=== PATIENT | female | born 1990 | race Caucasian/White ===

== ENCOUNTER 2022-03-07 09:15 | Emergency (ER) | payer OTHER ==
[2022-03-07 09:45] VITALS: BP 110/80
--- NOTE | 2022-03-07 12:12 | XRAY Report ---
PROCEDURE: Chest 1 View X-Ray INDICATIONS: cough/fever TECHNIQUE: One view of the chest was acquired. COMPARISON: None. FINDINGS: Surgical changes and devices: None. Lungs and pleura: No pleural effusions or pneumothorax. Lungs are clear. Mediastinum: Mediastinal contours appear normal. Heart size is normal. Bones and chest wall: No suspicious bony lesions. Overlying soft tissues appear unremarkable. IMPRESSION: Portable chest within normal limits for age. No focal infiltrates are seen. Reviewed by: Jairo Dos Santos MD on 03/07/2022 11:11 AM [facility] Approved by: Jairo Dos Santos MD on 03/07/2022 11:11 AM [facility] Station ID: [id number]
--- NOTE | 2022-03-07 12:36 | ED Physician Documentation ---
PD HPI URI - Stated complaint Stated Complaint: COUGH, CHILL, SWEATS, DIZZY - Chief complaint Chief Complaint: Resp - History obtained from History obtained from: Patient - Additional information Additional information: Patient is a 31-year-old female presenting for evaluation of fever, nonproductive cough, sore throat and body aches since Tuesday. Her daughter is also here with similar symptoms. She has been using teet-sgf-timatum medications including antipyretics with some improvement. She has had no vomiting or diarrhea. She denies abdominal pain, chest pain or labored breathing.She reports a history of pneumonia which concerned her given her fevers. Review of Systems Constitutional: reports: Fever Nose: reports: Congestion Throat: reports: Sore throat Cardiac: denies: Chest pain / pressure Respiratory: reports: Cough. denies: Dyspnea GI: denies: Abdominal Pain, Vomiting : denies: Dysuria Musculoskeletal: denies: Back pain Neurologic: denies: Headache PD PAST MEDICAL HISTORY - Past Medical History Past Medical History: No - Past Surgical History Ortho: ACL reconstruction - Present Medications Home Medications: Ambulatory Orders Medication Instructions Recorded Confirmed EPINEPHrine [Epinephrine] 0.3 mg IJ ONCE PRN 03/07/22 03/07/22 Fluoxetine HCl [Prozac] 40 mg PO DAILY 03/07/22 03/07/22 - Allergies Allergies/Adverse Reactions: Allergies Allergy/AdvReac Type Severity Reaction Status Date / Time artichoke Allergy Anaphylaxis Verified 03/07/22 09:45 pecan nut Allergy Anaphylaxis Verified 03/07/22 09:45 - Social History Does the pt smoke?: No Smoking Status: Never smoker Does the pt drink ETOH?: Yes ETOH Use: Wine Does the pt have substance abuse?: No - Immunizations Immunizations are current?: Yes - POLST Patient has POLST: No PD ED PE NORMAL - General General: Alert and oriented X 3, No acute distress, Well developed/nourished - HEENT HEENT: Atraumatic, Ears normal, Moist mucous membranes, Pharynx benign - Neck Neck: Supple, no meningeal sign - Cardiac Cardiac: RRR, Strong equal pulses - Respiratory Respiratory: No respiratory distress, Clear bilaterally - Abdomen Abdomen: Soft, Non tender - Derm Derm: Warm and dry - Extremities Extremities: No edema - Neuro Neuro: Normal speech Results - Vitals Vitals: Vital Signs - 24 hr 03/07/22 09:41 Temperature 36.8 C Heart Rate 99 Respiratory 18 Rate Blood Pressure 110/80 O2 Saturation 95 Oxygen O2 Source Room air - Labs Labs: Laboratory Tests 03/07/22 09:49 Nasal Adenovirus (PCR) NOT DETECTED Nasal B. parapertussis DNA (PCR) NOT DETECTED Nasal Coronavir 229E PCR NOT DETECTED Nasal Coronavir HKU1 PCR NOT DETECTED Nasal Coronavir NL63 PCR NOT DETECTED Nasal Coronavir OC43 PCR NOT DETECTED Nasal Enterovir/Rhinovir PCR NOT DETECTED Nasal Influenza A H3 PCR DETECTED A Nasal Influenza B PCR NOT DETECTED Nasal Parainfluen 1 PCR NOT DETECTED Nasal Parainfluen 2 PCR NOT DETECTED Nasal Parainfluen 3 PCR NOT DETECTED Nasal Parainfluen 4 PCR NOT DETECTED Nasal RSV (PCR) NOT DETECTED Nasal B.pertussis DNA PCR NOT DETECTED Nasal C.pneumoniae (PCR) NOT DETECTED [place] Human Metapneumo PCR NOT DETECTED Nasal M.pneumoniae (PCR) NOT DETECTED Nasal SARS-CoV-2 (PCR) NOT DETECTED PD MEDICAL DECISION MAKING - ED course Complexity details: re-evaluated patient ED course: Patient with URI symptoms for 3 days. Clinically she is well-appearing with no signs of labored breathing does not appear toxic. Oxygenation is normal. Her chest x-ray is clear. A respiratory panel is pending. It discussed that I suspect her symptoms are likely due to a flulike illness. Patient declined need for Tamiflu. Patient counseled on concerning symptoms to return for and was advised to continue with supportive care. Departure - Departure Disposition: 01 Home, Self Care Clinical Impression: Viral upper respiratory illness Condition: Stable Instructions: ED Viral Syndrome Comments: Your chest x-ray is clear With no evidence of pneumonia. Your respiratory panel is pending. Please continue with acetaminophen or ibuprofen as needed for fevers and body aches, hydration and rest. You have a Covid test pending. You need to self quarantine until the result is done and negative. Do not leave your house. Do not get near anybody. The results should be done in 48 to 72 hours. We will call with a positive result, the fastest way to get a negative result for confirmation though is to go to the hospital website at [email or web address], click on the my [facility] tab and sign up for the patient portal. If any friends or family get sick and would like to have a Covid test done, but do not have signs or symptoms that would necessitate being hospitalized, there are multiple local options for Covid testing. [facility] keeps an updated list of testing and vaccination options at: [email or web address]. Discharge Date/Time: 03/07/22 12:44
[2022-03-07 13:13] LABS: B. PARAPERTUSSIS- RESP PCR PAN NOT DETECTED; B. PERTUSSIS- RESP PCR PANEL NOT DETECTED; C. PNEUMONIAE- RESP PCR PANEL NOT DETECTED; CORONAVIRUS 229E-RESP PCR NOT DETECTED; CORONAVIRUS HKU1-RESP PCR NOT DETECTED; CORONAVIRUS NL63-RESP PCR NOT DETECTED; CORONAVIRUS OC43-RESP PCR NOT DETECTED; HUMAN METAPNEUMOVIRUS NOT DETECTED; INFLUENZA A H3- RESP PCR PANEL DETECTED; INFLUENZA B - RESP PCR PANEL NOT DETECTED; M. PNEUMONIAE- RESP PCR PANEL NOT DETECTED; PARAINFLUENZA VIRUS 1 NOT DETECTED; PARAINFLUENZA VIRUS 2 NOT DETECTED; PARAINFLUENZA VIRUS 3 NOT DETECTED; PARAINFLUENZA VIRUS 4 NOT DETECTED; RHINOVIRUS/ENTEROVIRUS NOT DETECTED; RSV- RESP PCR PANEL NOT DETECTED; SARS-CoV-2 -RESP PCR PANEL NOT DETECTED
== END 2022-03-07 12:44 | disposition home or self-care (01) ==
LOC: ED 09:15
DX: J06.9 Acute upper respiratory infection, unspecified (principal); Z20.822 Contact with and (suspected) exposure to COVID-19
CPT/HCPCS: 87633; 99282; 99284